=== PATIENT | female | born 1985 | race African-American/Black ===

== ENCOUNTER 2021-12-12 15:46 | Inpatient (IN) | payer MEDICAID ==
[~2021-12-12] VITALS: Ht 172.7 cm; Wt 100.2 kg
[~2021-12-12 15:46] MED LIST: ALPR-341 MT; ASPI-1497 MT; ATOR10TA MT; BUME2TAB7 MT; CARV6.2548 MT; LISI10TA26 MT; POTA-189 MT; SERT50TA MT; SPIR25TA6 MT
[2021-12-12 16:23] LABS: BASOPHILS % 0.5 % (0.0-2.0); EOSINOPHILS % 0.7 % (0.0-5.0); HEMATOCRIT. 29.4 % (36.0-48.0); HEMOGLOBIN. 9.6 g/dL (12.0-16.0); LYMPHOCYTES % 13.2 % (20.0-50.0); MEAN CORPUSCULAR HEMOGLOBIN 26.3 pg (28.0-32.0); MEAN CORPUSCULAR VOLUME 80.9 fL (81.0-99.0); MEAN PLATELET VOLUME 9.6 fl (7.4-10.4); MONOCYTES % 8.1 % (2.0-8.0); NEUTROPHILS % 77.5 % (40.0-76.0); PLATELET 230 x1000/uL (130-400); RED BLOOD CELL COUNT 3.64 mill/uL (4.2-5.4)
[2021-12-12 16:26] LABS: CHLORIDE 112 mEq/L (98-107)
[2021-12-12 16:42] LABS: HCG SCREEN NEGATIVE
[2021-12-12] MEDS ORDERED: SODIUM CHLORIDE 0.9% 250 ML IV ONE (17:00)
[2021-12-12] MEDS ORDERED: PIPERACILLIN/TAZ 3.375G PREMIX 50 ML IV NR (17:00)
[2021-12-12] MEDS ORDERED: GUAIFENESIN 200MG/10ML SUGAR FREE UDC PO PRN (20:15)
[2021-12-12] MEDS ORDERED: HYDRALAZINE 20MG/ML VIAL IV PRN (20:15)
[2021-12-12] MEDS: POTASSIUM CHLORIDE 20MEQ TABLET SR PO NR ×2 (20:15→21:47)
[2021-12-12] MEDS ORDERED: MAGNESIUM/ALUMINUM HYDROXIDE/SIMETHICONE 30ML UDC PO PRN (20:15)
[2021-12-12] MEDS ORDERED: DIPHENHYDRAMINE 50MG/ML VIAL IV PRN (20:15)
[2021-12-12] MEDS ORDERED: DOCUSATE SODIUM 100MG CAPSULE PO PRN (20:15)
[2021-12-12] MEDS ORDERED: ONDANSETRON HCL 4MG/2ML INJ IV PRN (20:15)
[2021-12-12] MEDS ORDERED: CLONIDINE 0.1MG TABLET PO PRN (20:15)
[2021-12-12] MEDS ORDERED: NALOXONE HCL 0.4MG/ML VIAL IV PRN (20:30)
[2021-12-12] MEDS: IPRATROPIUM/ALBUTEROL 0.5-3(2.5)MG/3ML NEB HHN PRN ×3 (21:23→23:48)
[2021-12-12] MEDS ORDERED: FUROSEMIDE 20MG/2ML VIAL IVP NR (21:45)
[2021-12-12] MEDS: MORPHINE SULFATE 2 MG/ML CPJ (NOT FOR IM USE) IV PRN (21:47)
[2021-12-12] MEDS: SODIUM CHLORIDE 0.9% INJ 3ML FLUSH IVF SCH (22:04)
[2021-12-13] VITALS (66 sets, daily range): BP systolic 85–121; BP diastolic 43–76
[2021-12-13 04:53] LABS: BG BASE EXCESS -4.5 mmol/L (-2.0-2.0); BG CARBOXYHEMOGLOBIN 0.3 % (0.5-1.5); BG DEOXYHEMOGLOBIN 2.2 % (0.0-5.0); BG FRACTION INSPIRED OXYGEN 100; BG HCO3 ACT 19.7 mmol/L (22.0-26.0); BG METHEMOGLOBIN 0.4 % (0.0-1.5); BG OXYGEN SATURATION 97.8 % (92.0-98.5); BG OXYHEMOGLOBIN 97.1 % (94.0-97.0); BG PCO2 32.8 mmHg (35.0-45.0); BG PH 7.396 (7.350-7.450); BG PO2 110.6 mmHg (75.0-100.0); BG SAMPLE SITE LEFT RADIAL; BG TOTAL HEMOGLOBIN 9.4 g/dL (12.0-18.0); BG VENT MODE MASK - NRB
[2021-12-13] MEDS ORDERED: NOREPINEPHRINE 32 MG in DEXT 5% WATER 218 ML IV PRN (05:30)
[2021-12-13 05:32] LABS: CHLORIDE 113 mEq/L (98-107)
[2021-12-13] MEDS: SODIUM CHLORIDE 0.9% INJ 3ML FLUSH IVF SCH ×2 (06:31→13:30)
[2021-12-13 07:39] LABS: BASOPHILS % 0.3 % (0.0-2.0); EOSINOPHILS % 0.5 % (0.0-5.0); HEMATOCRIT. 26.9 % (36.0-48.0); HEMOGLOBIN. 8.5 g/dL (12.0-16.0); LYMPHOCYTES % 15.2 % (20.0-50.0); MEAN CORPUSCULAR VOLUME 82.1 fL (81.0-99.0); MEAN PLATELET VOLUME 9.5 fl (7.4-10.4); MONOCYTES % 8.8 % (2.0-8.0); NEUTROPHILS % 75.2 % (40.0-76.0); PLATELET 224 x1000/uL (130-400); RED BLOOD CELL COUNT 3.28 mill/uL (4.2-5.4); RED CELL DISTRIBUTION WIDTH 16.1 % (11.6-14.6)
[2021-12-13] MEDS ORDERED: LIDOCAINE HCL/PF 1% 10 MG/ML 5ML VIAL ONE (09:43)
[2021-12-13] MEDS ORDERED: FUROSEMIDE 40MG/4ML VIAL IVP NR (10:15)
[2021-12-13] MEDS: MORPHINE SULFATE 2 MG/ML CPJ (NOT FOR IM USE) IV PRN (11:18)
[2021-12-13] MEDS: SPIRONOLACTONE 25MG TABLET PO SCH (11:23)
[2021-12-13] MEDS: MIDODRINE HCL 2.5MG TABLET PO SCH ×2 (13:30→17:29)
[2021-12-13] MEDS: FUROSEMIDE 40MG/4ML VIAL IVP SCH ×2 (13:30→17:29)
[2021-12-13 16:20] LABS: *AMPHETAMINES SCREEN URINE NEGATIVE (NEGATIVE); *BARBITURATES SCREEN URINE NEGATIVE (NEGATIVE); *BENZODIAZEPINES SCREEN URINE NEGATIVE (NEGATIVE); *COCAINE SCREEN URINE NEGATIVE (NEGATIVE); CANNABINOID URINE SCREEN NEGATIVE (NEGATIVE); METHADONE URINE SCREEN NEGATIVE (NEGATIVE); PHENCYCLIDINE URINE SCREEN NEGATIVE (NEGATIVE)
[2021-12-13 16:22] LABS: OPIATES URINE SCREEN PRESUMTIVE POSITIVE (NEGATIVE)
[2021-12-14] VITALS (57 sets, daily range): BP systolic 85–163; BP diastolic 43–90
[2021-12-14 11:44] LABS: BASOPHILS % 0.9 % (0.0-2.0); EOSINOPHILS % 0.8 % (0.0-5.0); HEMATOCRIT. 28.4 % (36.0-48.0); HEMOGLOBIN. 9.2 g/dL (12.0-16.0); LYMPHOCYTES % 13.5 % (20.0-50.0); MEAN CORPUSCULAR HEMOGLOBIN 26.4 pg (28.0-32.0); MEAN CORPUSCULAR VOLUME 81.5 fL (81.0-99.0); MEAN PLATELET VOLUME 10.4 fl (7.4-10.4); MONOCYTES % 8.9 % (2.0-8.0); NEUTROPHILS % 75.9 % (40.0-76.0); PLATELET 232 x1000/uL (130-400); RED BLOOD CELL COUNT 3.48 mill/uL (4.2-5.4); RED CELL DISTRIBUTION WIDTH 16.5 % (11.6-14.6)
[2021-12-14] MEDS: MIDODRINE HCL 2.5MG TABLET PO SCH ×3 (11:50→16:33)
[2021-12-14] MEDS: FUROSEMIDE 40MG/4ML VIAL IVP SCH ×2 (11:50→16:33)
[2021-12-14] MEDS: SPIRONOLACTONE 25MG TABLET PO SCH (11:51)
[2021-12-14 12:00] LABS: CHLORIDE 109 mEq/L (98-107)
[2021-12-14 12:24] LABS: HDL CHOLESTEROL 17 mg/dL (40-59); LDL CHOLESTEROL 66 mg/dL (5-100)
[2021-12-14] MEDS ORDERED: POTASSIUM CHLORIDE 20MEQ TABLET SR PO NR (12:45)
[2021-12-14] MEDS: SODIUM CHLORIDE 0.9% INJ 3ML FLUSH IVF SCH (13:11)
[2021-12-15] VITALS (79 sets, daily range): BP systolic 57–146; BP diastolic 25–103
[2021-12-15 05:44] LABS: BASOPHILS % 0.6 % (0.0-2.0); EOSINOPHILS % 1.7 % (0.0-5.0); HEMATOCRIT. 31.4 % (36.0-48.0); HEMOGLOBIN. 10.3 g/dL (12.0-16.0); LYMPHOCYTES % 23.2 % (20.0-50.0); MEAN CORPUSCULAR HEMOGLOBIN 26.2 pg (28.0-32.0); MEAN CORPUSCULAR VOLUME 79.8 fL (81.0-99.0); MEAN PLATELET VOLUME 9.6 fl (7.4-10.4); NEUTROPHILS % 64.5 % (40.0-76.0); PLATELET 277 x1000/uL (130-400); RED BLOOD CELL COUNT 3.93 mill/uL (4.2-5.4); RED CELL DISTRIBUTION WIDTH 16.4 % (11.6-14.6)
[2021-12-15 05:51] LABS: CHLORIDE 98 mEq/L (98-107)
[2021-12-15] MEDS ORDERED: MAGNESIUM 2 G PREMIX 50 ML IV SCH (09:00)
[2021-12-15] MEDS ORDERED: APIXABAN 5 MG TABLET PO SCH (09:00)
[2021-12-15] MEDS ORDERED: ASPIRIN 81MG TABLET PO SCH (09:00)
[2021-12-15] MEDS: SPIRONOLACTONE 25MG TABLET PO SCH (09:00)
[2021-12-15] MEDS: POTASSIUM CHLORIDE 20MEQ TABLET SR PO SCH (09:41)
[2021-12-15] MEDS: FUROSEMIDE 40MG/4ML VIAL IVP SCH ×2 (09:42→17:00)
[2021-12-15] MEDS: MIDODRINE HCL 2.5MG TABLET PO SCH ×3 (09:43→22:06)
[2021-12-15] MEDS ORDERED: CEFTRIAXONE 1 G PREMIX 50 ML IV SCH (10:00)
[2021-12-15] MEDS: CEFTRIAXONE 1,000 MG in DEXTROSE 5% WATER 50 ML IV SCH (12:17)
[2021-12-15] MEDS: AZITHROMYCIN 500 MG in DEXT 5% WATER 250 ML IV SCH (12:18)
[2021-12-15] MEDS: IPRATROPIUM/ALBUTEROL 0.5-3(2.5)MG/3ML NEB HHN SCH ×3 (13:32→20:00)
[2021-12-15] MEDS: ACETYLCYSTEINE 100MG/ML 10% VIAL 4ML INH SCH (14:00)
[2021-12-16] VITALS (61 sets, daily range): BP systolic 85–142; BP diastolic 35–94
[2021-12-16] MEDS: ACETYLCYSTEINE 100MG/ML 10% VIAL 4ML INH SCH (00:35)
[2021-12-16] MEDS: IPRATROPIUM/ALBUTEROL 0.5-3(2.5)MG/3ML NEB HHN SCH ×2 (04:00)
[2021-12-16 06:22] LABS: BASOPHILS % 0.7 % (0.0-2.0); EOSINOPHILS % 2.3 % (0.0-5.0); HEMATOCRIT. 32.6 % (36.0-48.0); HEMOGLOBIN. 10.7 g/dL (12.0-16.0); LYMPHOCYTES % 25.1 % (20.0-50.0); MEAN CORPUSCULAR HEMOGLOBIN 25.9 pg (28.0-32.0); MEAN PLATELET VOLUME 9.5 fl (7.4-10.4); MONOCYTES % 9.3 % (2.0-8.0); NEUTROPHILS % 62.6 % (40.0-76.0); PLATELET 301 x1000/uL (130-400); RED BLOOD CELL COUNT 4.13 mill/uL (4.2-5.4); RED CELL DISTRIBUTION WIDTH 16.1 % (11.6-14.6)
[2021-12-16] MEDS: MIDODRINE HCL 2.5MG TABLET PO SCH ×3 (06:23→21:13)
[2021-12-16 06:37] LABS: CHLORIDE 100 mEq/L (98-107)
[2021-12-16] MEDS: FUROSEMIDE 40MG/4ML VIAL IVP SCH ×2 (09:06→16:22)
[2021-12-16] MEDS: POTASSIUM CHLORIDE 20MEQ TABLET SR PO SCH (09:06)
[2021-12-16] MEDS: SPIRONOLACTONE 25MG TABLET PO SCH (09:06)
[2021-12-16] MEDS: CEFTRIAXONE 1,000 MG in DEXTROSE 5% WATER 50 ML IV SCH (11:16)
[2021-12-16] MEDS: AZITHROMYCIN 500 MG in DEXT 5% WATER 250 ML IV SCH (11:16)
[2021-12-17] VITALS (34 sets, daily range): BP systolic 95–143; BP diastolic 33–81
[2021-12-17] MEDS: MIDODRINE HCL 2.5MG TABLET PO SCH ×3 (05:40→22:02)
[2021-12-17] MEDS: SPIRONOLACTONE 25MG TABLET PO SCH (08:57)
[2021-12-17] MEDS: FUROSEMIDE 40MG/4ML VIAL IVP SCH ×2 (08:57→17:11)
[2021-12-17] MEDS: POTASSIUM CHLORIDE 20MEQ TABLET SR PO SCH ×2 (08:57→09:00)
[2021-12-17] MEDS: CEFTRIAXONE 1,000 MG in DEXTROSE 5% WATER 50 ML IV SCH (10:44)
[2021-12-17] MEDS: AZITHROMYCIN 500 MG in DEXT 5% WATER 250 ML IV SCH (11:52)
[2021-12-17 16:44] LABS: BASOPHILS % 0.9 % (0.0-2.0); EOSINOPHILS % 1.4 % (0.0-5.0); HEMATOCRIT. 36.3 % (36.0-48.0); HEMOGLOBIN. 11.7 g/dL (12.0-16.0); LYMPHOCYTES % 19.8 % (20.0-50.0); MEAN CORPUSCULAR HEMOGLOBIN 25.7 pg (28.0-32.0); MEAN CORPUSCULAR VOLUME 80.1 fL (81.0-99.0); MEAN PLATELET VOLUME 9.7 fl (7.4-10.4); MONOCYTES % 9.5 % (2.0-8.0); NEUTROPHILS % 68.4 % (40.0-76.0); PLATELET 372 x1000/uL (130-400); RED BLOOD CELL COUNT 4.54 mill/uL (4.2-5.4); RED CELL DISTRIBUTION WIDTH 16.7 % (11.6-14.6)
[2021-12-17 17:10] LABS: CHLORIDE 95 mEq/L (98-107)
[2021-12-18] VITALS (17 sets, daily range): BP systolic 63–125; BP diastolic 35–82
[2021-12-18 05:34] LABS: BASOPHILS % 0.7 % (0.0-2.0); EOSINOPHILS % 1.9 % (0.0-5.0); HEMATOCRIT. 36.5 % (36.0-48.0); HEMOGLOBIN. 11.8 g/dL (12.0-16.0); LYMPHOCYTES % 22.5 % (20.0-50.0); MEAN CORPUSCULAR HEMOGLOBIN 25.6 pg (28.0-32.0); MEAN CORPUSCULAR VOLUME 79.2 fL (81.0-99.0); MEAN PLATELET VOLUME 9.7 fl (7.4-10.4); MONOCYTES % 10.3 % (2.0-8.0); NEUTROPHILS % 64.6 % (40.0-76.0); PLATELET 368 x1000/uL (130-400); RED BLOOD CELL COUNT 4.61 mill/uL (4.2-5.4); RED CELL DISTRIBUTION WIDTH 16.6 % (11.6-14.6)
[2021-12-18 05:42] LABS: CHLORIDE 97 mEq/L (98-107)
[2021-12-18] MEDS: MIDODRINE HCL 2.5MG TABLET PO SCH ×2 (06:49→15:28)
[2021-12-18] MEDS: FUROSEMIDE 40MG/4ML VIAL IVP SCH (09:17)
[2021-12-18] MEDS: SPIRONOLACTONE 25MG TABLET PO SCH (09:17)
[2021-12-18] MEDS: POTASSIUM CHLORIDE 20MEQ TABLET SR PO SCH ×2 (09:20→09:25)
[2021-12-18] MEDS: CEFTRIAXONE 1,000 MG in DEXTROSE 5% WATER 50 ML IV SCH (11:29)
[2021-12-18] MEDS: AZITHROMYCIN 500 MG in DEXT 5% WATER 250 ML IV SCH (11:39)
== END 2021-12-18 20:00 | disposition left against medical advice (07) | DRG 720 ==
LOC: ER 15:46 → 5EST 18:56 → ENRESERV 22:00 → CVICU 12-13 07:40
PROVIDERS: ADMIT Internal Medicine; ATTEND Internal Medicine
PROC: 5A09357 Assistance with Respiratory Ventilation, Less than 24 Consecutive Hours, Continuous Positive Airway Pressure (ICD-10-PCS; principal; 2021-12-12)
PROC: B543ZZA Ultrasonography of Right Jugular Veins, Guidance (ICD-10-PCS; 2021-12-13)
PROC: 05HM33Z Insertion of Infusion Device into Right Internal Jugular Vein, Percutaneous Approach (ICD-10-PCS; 2021-12-13)
DX: A41.9 Sepsis, unspecified organism (principal); J96.01 Acute respiratory failure with hypoxia; I50.23 Acute on chronic systolic (congestive) heart failure; E44.0 Moderate protein-calorie malnutrition; J18.9 Pneumonia, unspecified organism; I42.0 Dilated cardiomyopathy; I27.20 Pulmonary hypertension, unspecified; I69.351 Hemiplegia and hemiparesis following cerebral infarction affecting right dominant side; I11.0 Hypertensive heart disease with heart failure; E66.01 Morbid (severe) obesity due to excess calories; E78.5 Hyperlipidemia, unspecified; D64.9 Anemia, unspecified; I25.10 Atherosclerotic heart disease of native coronary artery without angina pectoris; I48.0 Paroxysmal atrial fibrillation; Z20.822 Contact with and (suspected) exposure to COVID-19; Z28.310 Unvaccinated for COVID-19; I69.322 Dysarthria following cerebral infarction; Z95.810 Presence of automatic (implantable) cardiac defibrillator; Z68.33 Body mass index [BMI] 33.0-33.9, adult; Z88.8 Allergy status to other drugs, medicaments and biological substances; Z91.040 Latex allergy status; Z79.82 Long term (current) use of aspirin; Z79.899 Other long term (current) drug therapy
CPT/HCPCS: 36415; 36573; 36600; 71045; 71250; 76604; 80048; 80053; 80061; 80305; 82375; 82805; 83605; 83735; 83880; 84145; 84484; 84703; 85025; 87426; 93005; 93306; 93970; 93971; 94640; 94660; 94667; 97162; 99291; C1725; C9803; J0456; J0696; J1940; J2270; J2405; J2543; J3475; J3490; J7030; J7060; J7608